=== PATIENT | male | born 1990 | race Caucasian/White ===

== ENCOUNTER 2024-09-28 05:11 | Emergency (ER) | payer OTHER ==
[2024-09-28 05:18] VITALS: RESP 18; TEMP 97.5
--- NOTE | 2024-09-28 05:42 | ERPHSYRPT ---
- History of Present Illness Time Seen by Provider: 09/28/24 05:37 Historian: patient Exam Limitations: no limitations Patient Subjective Stated Complaint: rt rib pain Triage Nursing Assessment: Pt ambulated into ER without diff, at bedside. Pt c/o pain to right side under his ribs, and rt upper and lower abd pain. Pt describes the pain as worsening when taking a deep breath or coughing. Abd round/obese with active bs x4 quad, tender with palpation. LBM 09/27/24. Pt has hx of dm II and htn and is not taking any of his medications for these conditions. Physician History: 34-year-old male presents to our ED for evaluation of right flank pain. Pain radiates from his right upper flank to right groin. Pain started yesterday. Pain has been intermittent. Pain is got progressively worse. No trauma no fever. No obvious hematuria. Symptoms are mild to moderate in intensity. No specific worsening or improving factors. at bedside. They voiced no other complaints or concerns at this time. Portions of this note were created with voice recognition technology. There may be grammatical, spelling, punctuation or sound alike errors Timing/Duration: yesterday Activities at Onset: none Quality: aching Abdominal Pain Onset Location: flank Pain Radiation: no radiation Severity of Pain-Max: moderate Severity of Pain-Current: mild Modifying Factors: Improves With: nothing Associated Symptoms: denies symptoms Previous symptoms: no prior history Allergies/Adverse Reactions: No Known Drug Allergies Allergy (Unverified 09/28/24 05:25) Hx Tetanus, Diphtheria Vaccination/Date Given: No Hx Influenza Vaccination/Date Given: No Hx Pneumococcal Vaccination/Date Given: No Travel Risk - International Travel Have you traveled outside of the country in past 3 weeks: No - Emerging Infectious Disease Are you exhibiting symptoms associated with any current EIDs: Yes Symptoms: Fever - Review of Systems Constitutional: No Symptoms, No Fever, No Chills Eyes: No Symptoms Ears, Nose, & Throat: No Symptoms Respiratory: No Symptoms, No Cough, No Dyspnea Cardiac: No Symptoms, No Chest Pain, No Edema, No Syncope Abdominal/Gastrointestinal: No Symptoms, No Abdominal Pain, No Nausea, No Vomiting, No Diarrhea Genitourinary Symptoms: No Symptoms, No Dysuria Musculoskeletal: No Symptoms, No Back Pain, No Neck Pain Skin: No Symptoms, No Rash Neurological: No Symptoms, No Dizziness, No Focal Weakness, No Sensory Changes Psychological: No Symptoms Endocrine: No Symptoms Hematologic/Lymphatic: No Symptoms Immunological/Allergic: No Symptoms All Other Systems: Reviewed and Negative - Past Medical History Pertinent Past Medical History: Yes Cardiac History: Hypertension Endocrine Medical History: Diabetes Type II - Past Surgical History Past Surgical History: Yes Musculoskeletal: Orthopedic Surgery Other Surgical History: left hand - Social History Smoking Status: Never smoker Exposure to second hand smoke: No Drug Use: none - Social Determinants of Health Will the patient participate in the screening: Yes Do you worry about a steady place to live?: No Do you have any problems with any of the following?: No known problems In the past 12 months,have you had to go without utilities?: No Transportation Issues: No Has anyone in your support network made you feel unsafe?: No Have you or anyone in your house had to go w/o enough food: No - Nursing Vital Signs Nursing Vital Signs: Initial Vital Signs Temperature 97.5 F 09/28/24 05:15 Pulse Rate 104 H 09/28/24 05:15 Respiratory Rate 18 09/28/24 05:15 Blood Pressure 162/103 09/28/24 05:15 O2 Sat by Pulse Oximetry 96 09/28/24 05:15 Pain Scale Pain Intensity 3 - Physical Exam General Appearance: no apparent distress, alert Eye Exam: PERRL/EOMI, eyes nml inspection Ears, Nose, Throat Exam: normal ENT inspection, pharynx normal, moist mucous membranes Neck Exam: normal inspection, full range of motion Respiratory Exam: normal breath sounds, lungs clear, airway intact, No respiratory distress Cardiovascular Exam: regular rate/rhythm, normal heart sounds Gastrointestinal/Abdomen Exam: soft, No tenderness, No mass Back Exam: normal inspection, normal range of motion, No CVA tenderness, No vertebral tenderness Extremity Exam: normal inspection, normal range of motion, pelvis stable Neurologic Exam: alert, oriented x 3, cooperative, normal mood/affect, sensation nml, No motor deficits Skin Exam: normal color, warm, dry Lymphatic Exam: No adenopathy SpO2 Interpretation: normal SpO2: 96 O2 Delivery: Room Air - Course Nursing assessment & vital signs reviewed: Yes - CT Exams Abdomen/Pelvis CT Interpretation: Tele-radiologist Report (Bilateral perinephric fat stranding) Ordered Tests: Active Orders 24 hr Category Date Time Status IV Insertion STAT Care 09/28/24 05:36 Active ABDOMEN AND PELVIS W/0 CONTRAS [CT] Stat Exams 09/28/24 05:37 Completed CBC W DIFF Stat Lab 09/28/24 05:41 Completed CMP Stat Lab 09/28/24 05:41 Completed CMP Stat Lab 09/28/24 07:33 Ordered CULTURE,URINE Stat Lab 09/28/24 Ordered POCT GLUCOSE Stat Lab 09/28/24 07:29 Completed POCT GLUCOSE Stat Lab 09/28/24 07:29 Received UA W/RFX UR CULTURE Stat Lab 09/28/24 06:11 Completed Medication Summary Generic Name Dose Route Start Last Admin Trade Name Freq PRN Reason Stop Dose Admin Lactated Ringer's 1,000 mls @ 999 mls/hr 09/28/24 07:36 Lactated Ringers IV 09/28/24 08:36 .Q1H1M ONE Levofloxacin/Dextrose 500 mg in 100 mls @ 100 mls/hr 09/28/24 07:48 Levofloxacin 500mg/100ml D5w IV 09/28/24 08:47 STAT STA Discontinued Medications Generic Name Dose Route Start Last Admin Trade Name Freq PRN Reason Stop Dose Admin Sodium Chloride 1,000 mls @ 999 mls/hr 09/28/24 05:36 09/28/24 07:11 Sodium Chloride 0.9% 1000 Ml IV 09/28/24 06:36 Infused .Q1H1M STA Infusion Sodium Chloride Confirm 09/28/24 05:54 Sodium Chloride 0.9% 1000 Ml Administered 09/28/24 05:55 Dose 1,000 mls @ ud .ROUTE .STK-MED ONE Insulin Human Regular 5 unit 09/28/24 06:16 09/28/24 06:34 Insulin Regular, Human 1 Unit IV 09/28/24 06:17 5 unit STAT ONE Administration Insulin Human Regular Confirm 09/28/24 06:33 Insulin Regular, Human 1 Unit Administered 09/28/24 06:34 Dose 5 unit .ROUTE .STK-MED ONE Ketorolac Tromethamine 30 mg 09/28/24 05:36 09/28/24 05:57 Ketorolac Tromethamine 30 Mg/Ml Inj IV 09/28/24 05:37 30 mg STAT ONE Administration Ketorolac Tromethamine Confirm 09/28/24 05:54 Ketorolac Tromethamine 30 Mg/Ml Inj Administered 09/28/24 05:55 Dose 30 mg .ROUTE .STK-MED ONE Lab/Rad Data: Laboratory Result Diagrams 09/28/24 05:41 09/28/24 05:41 Laboratory Results 09/28/24 09/28/24 09/28/24 Range/Units 07:29 06:11 05:41 WBC (4.23-9.07) x10^3/uL RBC (4.63-6.08) x10^6/uL Hgb (13.7-17.5) g/dL Hct (40.1-51.0) % MCV (79.0-92.2) fL MCH (25.7-32.2) pg MCHC (32.3-36.5) g/dL RDW (11.6-14.4) % Plt Count (163-337) x10^3/uL MPV (9.4-12.4) fL Gran % (34.0-67.9) % Immature Gran % (Auto) (0.001-0.429) % Nucleat RBC Rel Count (0.00-0.2) % Eos # (Auto) (0.04-0.54) x10^3/uL Immature Gran # (Auto) (0.001-0.031) x10^3u/L Absolute Lymphs (auto) (1.32-3.57) x10^3/uL Absolute Monos (auto) (0.30-0.82) x10^3/uL Absolute Nucleated RBC (0.00-0.012) x10^3u/L Lymphocytes % (21.8-53.1) % Monocytes % (5.3-12.2) % Eosinophils % (0.8-7.0) % Basophils % (0.2-1.2) % Absolute Granulocytes (1.78-5.38) x10^3/uL Basophils # (0.01-0.08) x10^3/uL Sodium 130 L (135-145) mmol/L Potassium 3.7 (3.5-5.1) mmol/L Chloride 96 L (98-107) mmol/L Carbon Dioxide 19 L (22-30) mmol/L Anion Gap 18.3 H (5-15) MEQ/L BUN 13 (9-20) mg/dL Creatinine 0.51 L (0.66-1.25) mg/dL Estimated GFR 134.8 ML/MIN Glucose 601 H* (74-106) mg/dL POC Glucometer 390 H (74 to 106) mg/dL Calcium 9.4 (8.4-10.2) mg/dL Total Bilirubin 0.60 (0.2-1.3) mg/dL AST 36 (17-59) U/L ALT 30 (0-50) U/L Alkaline Phosphatase 104 (38-126) U/L Serum Total Protein 6.9 (6.3-8.2) g/dL Albumin 4.0 (3.5-5.0) g/dL Urine Color Yellow (Yellow) Urine Appearance Clear (Clear) Urine pH 6.0 (4.6-8.0) Ur Specific Pfeifer >=1.030 A (1.005-1.030) Urine Protein Negative (Negative) Urine Glucose (UA) >=1000 A (Negative) mg/dL Urine Ketones 40 A (Negative) Urine Blood Negative (Negative) Urine Nitrite Negative (Negative) Urine Bilirubin Negative (Negative) Urine Urobilinogen 1.0 A (0.2) mg/dL Ur Leukocyte Esterase Negative (Negative) U Hyaline Cast (Auto) NONE SEEN (0-2) /LPF Urine Microscopic RBC 0-2 (0-5) /HPF Urine Microscopic WBC 0-2 (0-5) /HPF Ur Epithelial Cells None Seen (None Seen) /HPF Urine Bacteria None Seen (None Seen) /HPF Urine Culture Reflexed NO (NO) 09/28/24 Range/Units 05:41 WBC 3.2 L (4.23-9.07) x10^3/uL RBC 4.68 (4.63-6.08) x10^6/uL Hgb 14.7 (13.7-17.5) g/dL Hct 39.7 L (40.1-51.0) % MCV 84.8 (79.0-92.2) fL MCH 31.4 (25.7-32.2) pg MCHC 37.0 H (32.3-36.5) g/dL RDW 11.5 L (11.6-14.4) % Plt Count 100 L (163-337) x10^3/uL MPV 10.3 (9.4-12.4) fL Gran % 54.4 (34.0-67.9) % Immature Gran % (Auto) 0.9 H (0.001-0.429) % Nucleat RBC Rel Count 0.0 (0.00-0.2) % Eos # (Auto) 0.14 (0.04-0.54) x10^3/uL Immature Gran # (Auto) 0.03 (0.001-0.031) x10^3u/L Absolute Lymphs (auto) 1.04 L (1.32-3.57) x10^3/uL Absolute Monos (auto) 0.24 L (0.30-0.82) x10^3/uL Absolute Nucleated RBC 0.00 (0.00-0.012) x10^3u/L Lymphocytes % 32.5 (21.8-53.1) % Monocytes % 7.5 (5.3-12.2) % Eosinophils % 4.4 (0.8-7.0) % Basophils % 0.3 (0.2-1.2) % Absolute Granulocytes 1.74 L (1.78-5.38) x10^3/uL Basophils # 0.01 (0.01-0.08) x10^3/uL Sodium (135-145) mmol/L Potassium (3.5-5.1) mmol/L Chloride (98-107) mmol/L Carbon Dioxide (22-30) mmol/L Anion Gap (5-15) MEQ/L BUN (9-20) mg/dL Creatinine (0.66-1.25) mg/dL Estimated GFR ML/MIN Glucose (74-106) mg/dL POC Glucometer (74 to 106) mg/dL Calcium (8.4-10.2) mg/dL Total Bilirubin (0.2-1.3) mg/dL AST (17-59) U/L ALT (0-50) U/L Alkaline Phosphatase (38-126) U/L Serum Total Protein (6.3-8.2) g/dL Albumin (3.5-5.0) g/dL Urine Color (Yellow) Urine Appearance (Clear) Urine pH (4.6-8.0) Ur Specific Pfeifer (1.005-1.030) Urine Protein (Negative) Urine Glucose (UA) (Negative) mg/dL Urine Ketones (Negative) Urine Blood (Negative) Urine Nitrite (Negative) Urine Bilirubin (Negative) Urine Urobilinogen (0.2) mg/dL Ur Leukocyte Esterase (Negative) U Hyaline Cast (Auto) (0-2) /LPF Urine Microscopic RBC (0-5) /HPF Urine Microscopic WBC (0-5) /HPF Ur Epithelial Cells (None Seen) /HPF Urine Bacteria (None Seen) /HPF Urine Culture Reflexed (NO) - Progress Progress: improved Progress Note: 34-year-old male presents to our ED for evaluation of right flank pain. CT scan reveals bilateral perinephric fat stranding. No obvious UTI. Urine cultures ordered. Patient received a dose of Levaquin in our ED. A prescription for ciprofloxacin forwarded to patient's pharmacy. Laboratory workup suggestive of dehydration. Sodium 130. Anion gap 18. Glucose 600. Patient received a liter of normal saline and 5 units of regular insulin. Repeat blood glucose shows improvement from 600-390. We will repeat blood chemistry to reassess anion gap, sodium and glucose. Patient has an appointment with a family physician today. This is a new patient appointment. Patient will not make it as he is in our ED being treated. However nurse Marques is calling the clinic to arrange for follow-up tomorrow instead of today. Patient needs to be started on diabetic medication. It is currently the change of shift. Patient endorsed to Dr. Capps will follow-up on repeat chemistry. If chemistry is within normal limits patient may be discharged home on antibiotics. A prescription for ciprofloxacin forwarded to patient's pharmacy. If chemistry/electrolytes glucose remain abnormal patient to be admitted for further evaluation and treatment. Plan of care discussed with patient. He agrees to plan of care. Significant other at bedside. They voiced no other complaints or concerns at this time. Portions of this note were created with voice recognition technology. There may be grammatical, spelling, punctuation or sound alike errors Complexity of problem addressed is moderate acute complicated. No critical care time. Complex of data reviewed and analyzed is moderate. Test ordered chest reviewed results analyzed and correlated clinically with history and physical exam. Risk of complication and or risk of morbidity/mortality of patient management is moderate. A prescription for ciprofloxacin forwarded to patient's pharmacy. Vital stable. Time spent to discharge patient is approximately 20 minutes. Plan of care established for shared decision making. No social determinants of health present to impede follow-up. Portions of this note were created with voice recognition technology. There may be grammatical, spelling, punctuation or sound alike errors 09/28/24 07:50 Counseled pt/family regarding: lab results, diagnosis, need for follow-up, rad results - Departure Departure Disposition: Home Clinical Impression: DKA (diabetic ketoacidosis), Flank pain, Noncompliance with medication regimen, Dehydration, Bilateral perinephric fat stranding Condition: Stable Critical Care Time: No Referrals: DOCTOR,NO FAMILY [Primary Care Provider, UNKNOWN] - Follow up/PCP as directed DIANE CORDERO MD [ACTIVE STAFF, FAMILY PRACTICE] - Follow up/PCP as directed Additional Instructions: Discharge/Care Plan DAAM PALENCIA was seen on 09/28/24 in the Emergency Room. The patient was counseled regarding Diagnosis,Lab results, Imaging studies, need for follow up and when to return to the Emergency Room. Prescriptions given: Discharge Note I have spoken with the patient and/or caregivers. I have explained the patient's condition, diagnosis and treatment plan based on the information available to me at this time. I have answered the patient's and/or caregiver's questions and addressed any concerns. The patient and/or caregivers have as good understanding of the patient's diagnosis, condition and treatment plan as can be expected at this point. The vital signs have been stable. The patient's condition is stable and appropriate for discharge from the emergency department. The patient will pursue further outpatient evaluation with the primary care physician or other designated or consulting physician as outlined in the discharge instructions. The patient and/or caregivers are agreeable to this plan of care and follow-up instructions have been explained in detail. The patient and/or caregivers have received these instruction. The patient/and or caregivers are aware that any significant change in condition or worsening of symptoms should prompt an immediate return to this or the closest emergency department or call 911. Prescriptions: Ciprofloxacin [Cipro 500 MG] 500 mg PO BID 7 Days #14 tablet
[2024-09-28 05:46] LABS: Absolute Neutrophil Ct (ANC) 1.74 x10^3/uL (1.78-5.38); BASOPHIL % 0.3 % (0.2-1.2); Basophil (Absolute #) 0.01 x10^3/uL (0.01-0.08); Eosinophil % 4.4 % (0.8-7.0); Eosinophil (Absolute #) 0.14 x10^3/uL (0.04-0.54); Hematocrit 39.7 % (40.1-51.0); Hemoglobin 14.7 g/dL (13.7-17.5); IMMATURE GRAN # 0.03 x10^3u/L (0.001-0.031); IMMATURE GRAN % 0.9 % (0.001-0.429); Lymphocyte (Absolute #) 1.04 x10^3/uL (1.32-3.57); Lymphocytes % 32.5 % (21.8-53.1); Mean Cell Volume 84.8 fL (79.0-92.2); Mean Corpuscular Hemoglobin 31.4 pg (25.7-32.2); Mean Platelet Volume 10.3 fL (9.4-12.4); Monocyte (Absolute #) 0.24 x10^3/uL (0.30-0.82); Monocytes % 7.5 % (5.3-12.2); Neutrophil % 54.4 % (34.0-67.9); Platelet Count 100 x10^3/uL (163-337); Red Blood Count 4.68 x10^6/uL (4.63-6.08); Red Cell Distribution Width 11.5 % (11.6-14.4); White Blood Count 3.2 x10^3/uL (4.23-9.07)
[2024-09-28] MEDS ORDERED: TORAdol 30 mg Injection ONE (05:54)
[2024-09-28] MEDS ORDERED: Sodium Chloride 0.9% 1000 ML 1,000 ML ONE (05:54)
[2024-09-28] MEDS: Sodium Chloride 0.9% 1000 ML 1,000 ML IV STA (05:56)
[2024-09-28] MEDS: TORAdol 30 mg Injection IV ONE (05:57)
[2024-09-28 05:58] LABS: ANION GAP 18.3 MEQ/L (5-15); BILIRUBIN,TOTAL 0.6 mg/dL (0.2-1.3); Calcium 9.4 mg/dL (8.4-10.2); Creatinine 1 0.51 mg/dL (0.66-1.25); EST GLOMERULAR FILTRATION RATE 134.8 ML/MIN; Potassium 3.7 mmol/L (3.5-5.1); Total Protein 6.9 g/dL (6.3-8.2)
[2024-09-28 06:27] LABS: Appearance Clear (Clear); Bacteria None Seen /HPF (None Seen); Bilirubin Negative (Negative); Blood Negative (Negative); Epithelial Cells None Seen /HPF (None Seen); Glucose, Urine >=1000 mg/dL (Negative); Hyaline Casts NONE SEEN /LPF (0-2); Ketones 40 (Negative); Leukocyte Esterase Negative (Negative); Nitrite Negative (Negative); Protein,Urine Dip Negative (Negative); RBC 0-2 /HPF (0-5); Specific Gravity >=1.030 (1.005-1.030); WBC 0-2 /HPF (0-5)
[2024-09-28] MEDS ORDERED: HUMULIN R ONE ×2 (06:33→09:44)
[2024-09-28] MEDS: HUMULIN R IV ONE ×2 (06:34→09:45)
--- NOTE | 2024-09-28 06:50 | XRAY ---
CLINICAL HISTORY: pain COMPARISON: None. TECHNIQUE: Contiguous axial images were obtained from the level of the diaphragm to the pubic symphysis without intravenous or oral contrast. Coronal and sagittal reconstructions were likewise performed and indicated to increase the sensitivity for detecting clinically relevant pathology. CT scan was performed according to ALARA (as low as reasonable achievable). FINDINGS: Subtle ground-glass haze is noted involving lateral segment of right middle lobe. Evaluation of the abdominal and pelvic visceral organs is limited without intravenous contrast. The unenhanced liver, spleen, pancreas, and adrenal glands are grossly unremarkable. The gallbladder is present. The kidneys are normal in size and attenuation without obvious calcification. There is no hydronephrosis . Mild bilateral perinephric stranding. The ureters are normal in caliber. No adenopathy or fluid collections are seen. No evidence of focal or diffuse bowel wall thickening or evidence of bowel obstruction is seen. The appendix is visualized in the right lower quadrant and appears within normal limits. The aorta is normal in caliber. The urinary bladder is normal in contour. Pelvic viscera are grossly unremarkable. No aggressive appearing osseous lesions are identified. IMPRESSION: 1. Mild bilateral perinephric fat stranding - infective/inflammatory etiology. Urine analysis correlation is suggested. 2. No other abnormality seen. Electronically Signed by: Jono Barba MD. (09/28/2024 06:47:00 EDT)
[2024-09-28] MEDS ORDERED: Lactated Ringers 1,000 ML IV ONE (08:15)
[2024-09-28] MEDS ORDERED: Levofloxacin 500MG/100ML D5W 500 MG/100 ML BAG IV ONE (08:15)
[2024-09-28] MEDS: Lactated Ringers 1,000 ML IV ONE (08:16)
[2024-09-28] MEDS: Levofloxacin 500MG/100ML D5W 500 MG/100 ML BAG IV STA (08:16)
[2024-09-28 08:46] LABS: ALBUMIN 3.8 g/dL (3.5-5.0); ANION GAP 18.6 MEQ/L (5-15); BILIRUBIN,TOTAL 0.6 mg/dL (0.2-1.3); Creatinine 1 0.5 mg/dL (0.66-1.25); EST GLOMERULAR FILTRATION RATE 135.6 ML/MIN; Potassium 3.7 mmol/L (3.5-5.1); Total Protein 6.6 g/dL (6.3-8.2)
[2024-09-28 11:11] VITALS: BP 146/88; PULSE 96; O2SAT 98
== END 2024-09-28 11:12 | disposition home or self-care (01) ==
LOC: ED 05:11
DX: E11.10 Type 2 diabetes mellitus with ketoacidosis without coma (principal); R10.9 Unspecified abdominal pain; Z91.148 Patient's other noncompliance with medication regimen for other reason; E86.0 Dehydration; R93.422 Abnormal radiologic findings on diagnostic imaging of left kidney; R93.421 Abnormal radiologic findings on diagnostic imaging of right kidney; Z79.899 Other long term (current) drug therapy
CPT/HCPCS: 36415; 74176; 80053; 81001; 82947; 85025; 96361; 96365; 96374; 96375; 96376; 99284; 99285; J1815; J1885; J1956